=== PATIENT | male | born 1980 | race Native Hawaiian/Other Pacific Islander ===

== ENCOUNTER 2025-02-20 18:13 | Emergency (ER) | payer OTHER ==
[~2025-02-20] VITALS: Ht 175.3 cm; Wt 82.1 kg
[2025-02-20 18:56] VITALS: TEMP 98.2
[2025-02-20 21:26] VITALS: BP 109/62; PULSE 72; RESP 16; O2SAT 100
[2025-02-20] MEDS ORDERED: NALO4SPR NASAL (21:30)
== END 2025-02-20 22:22 | disposition home or self-care (01) ==
LOC: EMS 18:14
DX: T40.601A Poisoning by unspecified narcotics, accidental (unintentional), initial encounter (principal); T40.2X1A Poisoning by other opioids, accidental (unintentional), initial encounter; X58.XXXA Exposure to other specified factors, initial encounter
CPT/HCPCS: 71045; 93005; 99283